=== PATIENT | female | born 1940 | race Caucasian/White ===

== ENCOUNTER 2020-02-08 11:24 | Inpatient (IN) | payer OTHER ==
--- NOTE | 2020-02-08 12:21 | PDOC ---
History of Present Illness - General Chief Complaint: Wound Stated Complaint: WOUND CARE Time Seen by Provider: 02/08/20 12:02 - History of Present Illness Initial Comments: 02/08/20 12:14 79F [place] with [place]H of mild dementia, DM, RA, HTN, old CVA was sent for admission for osteomyelitis and hardware removal. History provided by patient's daughter and PCP Tez, who state that patient has known osteomyelitis in right fifth metatarsal and exposed old hardwear in the left ankle. They state that podiatry recommended admission, and the PCP will coordinate care with podiatry, ortho, and ID. At present, patient complains of pain in right leg that began "10 minutes" ago. PMH/PSH: as above Home Medications Medication Instructions Recorded Acetaminophen [Tylenol 2 tab PO Q8H PRN 02/08/20 .Extra-Strength -] Adalimumab [Humira Pen] 40 mg PO Q14D 02/08/20 Albuterol Sulfate 0.042% [Ventolin 1 appful IH Q6H PRN 02/08/20 0.042% (Half-Strength) -] Aspirin [ASA -] 81 mg PO DAILY 02/08/20 Chlorhexidine Gluconate [Peridex -] 15 mg PO BID 02/08/20 Folic Acid - 1 mg PO DAILY 02/08/20 Gabapentin 300 mg PO BID 02/08/20 Gentamicin 0.1% Ointment 1 appful TP BID 02/08/20 [Garamycin 0.1% Ointment -] Hydrocortisone 1% Cream [Hytone 1% 1 appful TP Q12H 02/08/20 Cream -] Latanoprost 0.005% Eye Drops 1 drop OU HS 02/08/20 [Xalatan 0.005% Eye Drops -] Metoprolol Succinate [Toprol XL -] 25 mg PO DAILY 02/08/20 Polyethylene Glycol 3350 [Miralax 17 gm PO DAILY 02/08/20 119 gm Btl -] Polyvinyl Alcohol/Povidone [Gnp 1 drop OS TID 02/08/20 Artificial Tears Drops] Povidone-Iodine [Betadine -] 1 appful TP DAILY 02/08/20 Sorbitol Solution [Sorbitol] 15 ml PO DAILY 02/08/20 Timolol 0.5% [Timoptic 0.5%] 1 drop OD DAILY 02/08/20 traMADol HCL [Ultram -] 1 tab PO BID 02/08/20 Allergies Allergy/AdvReac Type Severity Reaction Status Date / Time No Known Allergies Allergy Verified 02/08/20 10:54 ROS GENERAL/CONSTITUTIONAL: No fever or chills. No weakness. HEAD, EYES, EARS, NOSE AND THROAT: No change in vision. No ear pain or discharge. No sore throat. CARDIOVASCULAR: No chest pain or shortness of breath RESPIRATORY: No cough, wheezing, or hemoptysis. GASTROINTESTINAL: No nausea, vomiting, diarrhea or constipation. GENITOURINARY: No dysuria, frequency, or change in urination. MUSCULOSKELETAL: Right leg pain. No neck or back pain. SKIN: No rash NEUROLOGIC: No headache, vertigo, loss of consciousness, or change in strength/sensation. ENDOCRINE: No increased thirst. No abnormal weight change HEMATOLOGIC/LYMPHATIC: No anemia, easy bleeding, or history of blood clots. ALLERGIC/IMMUNOLOGIC: No hives or skin allergy. PE GENERAL: Awake, alert, and fully oriented, in no acute distress HEAD: No signs of trauma, normocephalic, atraumatic EYES: PERRLA, EOMI, sclera anicteric, conjunctiva clear ENT: Auricles normal inspection, hearing grossly normal, nares patent, oropharynx clear without exudates. Moist mucosa NECK: Normal ROM, supple, no lymphadenopathy, JVD, or masses LUNGS: No distress, speaks full sentences, clear to auscultation bilaterally HEART: Regular rate and rhythm, normal S1 and S2, no murmurs, rubs or gallops, peripheral pulses normal and equal bilaterally. ABDOMEN: Distended. Soft, nontender, normoactive bowel sounds. No guarding, no rebound. No masses EXTREMITIES : Both feet and ankles wrapped in padding with screw extending out of left ankle. Extremities are contracted and show RA changes. no edema. No clubbing or cyanosis. NEUROLOGICAL: no focal sensorimotor deficits SKIN: Warm, Dry Vital Signs Temp Pulse Resp BP Pulse Ox 98.1 F 71 20 123/64 97 02/08/20 12:04 02/08/20 12:04 02/08/20 12:04 02/08/20 12:04 02/08/20 12:04 79F [place] with PMH of mild dementia, DM, RA, HTN, old CVA was sent for admission for osteomyelitis and hardware removal. -Admission order set: EKG, CXR, CBC, CMP, Covid -Blood cultures -plain films of both ankles and feet to evaluate for free air -flat and upright abdominal x-ray 02/08/20 17:01 EKG: NSR, rate 74, normal axis and intervals, no ischemic changes Labs: WBC 10.2 without shift No anemia Plt 516 Na 134 BUN/Cr 23.3/0.5 Alk phos 122 Alb 2.5 Abdominal x-ray: 2 views of the abdomen reveal a groundglass appearance compatible with ascites, left base infiltrate, prominent mediastinum and a suitable left skin fold artifact. A repeat chest film can be obtained to check whether or not the presumed skin fold artifact is skinfold artifact rather than a pneumothorax. There is central abdominal distention. This has the appearance of a small bowel obstruction. Correlation recommended. Portable CXR: Impression: Prominent mediastinum. Rotation right. Left base infiltrate. Follow- up recommended Right foot and ankle plain film: 2 views of the right foot and ankle reveal loss of bone density, bunion formation by the first MTP joint and some erosive changes which could indicate gout. The other toes are angulated with arthritic changes. There is a pes planus deformity. There is no sign of a foreign body or soft tissue air. There is some minimal swelling. If one is concerned about osteomyelitis, three-phase bone scan or MR may be of help Left foot and ankle plain film 4 views of the ankle and foot have been submitted. There is evidence of previous fracture stabilization involving the medial malleolus and distal fibula. There is loss of bone density, degenerative changes, bunion formation by the first MTP joint and angulated toes with an old nonhealed fracture deformity or postsurgical change involving the fifth metatarsal. If one is concerned about osteomyelitis, a 3-phase bone scan is suggested. Given lung and abdomen findings, will order a CT C/A/P with oral and IV contrast . 02/08/20 20:12 Admitting physician has assumed care Past History - Medical History Allergies/Adverse Reactions: Allergies Allergy/AdvReac Type Severity Reaction Status Date / Time No Known Allergies Allergy Verified 02/08/20 10:54 Home Medications: Ambulatory Orders Acetaminophen [Tylenol .Extra-Strength -] 2 tab PO Q8H PRN 02/08/20 Adalimumab [Humira Pen] 40 mg PO Q14D 02/08/20 Albuterol Sulfate 0.042% [Ventolin 0.042% (Half-Strength) -] 1 appful IH Q6H PRN 02/08/20 Aspirin [ASA -] 81 mg PO DAILY 02/08/20 Chlorhexidine Gluconate [Peridex -] 15 mg PO BID 02/08/20 Folic Acid - 1 mg PO DAILY 02/08/20 Gabapentin 300 mg PO BID 02/08/20 Gentamicin 0.1% Ointment [Garamycin 0.1% Ointment -] 1 appful TP BID 02/08/20 Hydrocortisone 1% Cream [Hytone 1% Cream -] 1 appful TP Q12H 02/08/20 Latanoprost 0.005% Eye Drops [Xalatan 0.005% Eye Drops -] 1 drop OU HS 02/08/20 Metoprolol Succinate [Toprol XL -] 25 mg PO DAILY 02/08/20 Polyethylene Glycol 3350 [Miralax 119 gm Btl -] 17 gm PO DAILY 02/08/20 Polyvinyl Alcohol/Povidone [Gnp Artificial Tears Drops] 1 drop OS TID 02/08/20 Povidone-Iodine [Betadine -] 1 appful TP DAILY 02/08/20 Sorbitol Solution [Sorbitol] 15 ml PO DAILY 02/08/20 Timolol 0.5% [Timoptic 0.5%] 1 drop OD DAILY 02/08/20 traMADol HCL [Ultram -] 1 tab PO BID 02/08/20 CVA: Yes (CVA) COPD: No Dementia: Yes Diabetes: Yes (30 yrs) HTN: Yes Thyroid Disease: Yes (RA,OA,dysphagia) - Surgical History Orthopedic Surgery: Yes - Psycho-Social/Smoking History Smoking History: Never smoked Have you smoked in the past 12 months: No *Physical Exam - Vital Signs Last Vital Signs Temp Pulse Resp BP Pulse Ox 98.1 F 71 20 123/64 97 02/08/20 12:04 02/08/20 12:04 02/08/20 12:04 02/08/20 12:04 02/08/20 12:04 ED Treatment Course - LABORATORY CBC & Chemistry Diagram: 02/08/20 13:05 02/08/20 13:03 Discharge - Discharge Information Problems reviewed: Yes Clinical Impression/Diagnosis: Osteomyelitis Qualifiers: Osteomyelitis type: chronic multifocal Osteomyelitis location: foot Laterality: unspecified laterality Qualified Code(s): M86.379 - Chronic multifocal osteomyelitis, unspecified ankle and foot Condition: Stable - Admission Yes - Follow up/Referral - Patient Discharge Instructions - Post Discharge Activity
[2020-02-08 13:45] LABS: BASO % 0.6 % (0-2.0); HEMATOCRIT 34.1 % (32.4-45.2); HEMOGLOBIN 11.3 GM/dL (10.7-15.3); MCH 28.9 pg (25.7-33.7); MEAN CELL VOLUME 87.5 fl (80-96); MEAN PLT VOLUME 7.4 fl (7.5-11.1); MONO % 6.4 % (3.8-10.2); PLATELET COUNT 516 K/MM3 (134-434); RDW 14.7 % (11.6-15.6); WHITE BLOOD COUNT 10.2 K/mm3 (4.0-10.0)
[2020-02-08] MEDS ORDERED: CEFEPIME HCL/D5W 2 GM/50 ML BAG IVPB ONE (14:20)
[2020-02-08] MEDS ORDERED: VANCOMYCIN 1,000 MG in DEXTROSE 5%-WATER - 250 ML IVPB ONE (14:20)
--- NOTE | 2020-02-08 14:20 | PDOC ---
Documentation entered by Jeff Menendez SCRIBE, acting as scribe for Jason Delaney MD. Jason Delaney MD: This documentation has been prepared by the Shon bertrand Xhesika, SCRIBE, under my direction and personally reviewed by me in its entirety. I confirm that the documentation accurately reflects all work, treatment, procedures, and medical decision making performed by me. Attending Attestation - Resident Resident Name: PorterRoe - ED Attending Attestation I have performed the following: I have examined & evaluated the patient, The case was reviewed & discussed with the resident, I agree w/resident's findings & plan, Exceptions are as noted - HPI HPI: 02/08/20 12:27 The patient is a 79 y/o F with a pmh of mild dementia, DM, RA, HTN, old CVA, and osteomyelitis who presents to the ED sent by Dr. Gil for admission for osteomyelitis and hardware removal. Allergies: NKDA PCP: brittanie bazan. - Physicial Exam PE: 02/08/20 14:22 Vitals: Triage Vital signs reviewed General Appearance: No acute distress, well nourished well developed, Head: Atraumatic, Cardiac: Regular rate and rhythym, no murmurs, no rubs, no gallops, Lungs: Clear to auscultation bilateral, good air movement bilaterally, Abdomen: Soft, non distended, normal bowel sounds, non tender to palpation Extremities: Seen by podiatry screw extruding from foot wrapped Skin: Warm and dry, no rashes or lesions, no rash, no petechiae Neuro: Strength intact to all extremities, sensation intact to all extremities Psych: Normal mood, normal affect - Medical Decision Making 02/10/20 16:10 The patient is a 79 y/o F with a pmh of mild dementia, DM, RA, HTN, old CVA, and osteomyelitis who presents to the ED sent by Dr. Gil for admission for osteomyelitis and hardware removal. IV abx ordered Ortho consulted CT Abd pelvis ordered 2/2 dilated loops on XRAY. Will admit to medicine for further management. Discharge - Discharge Information Problems reviewed: Yes Clinical Impression/Diagnosis: Osteomyelitis Qualifiers: Osteomyelitis type: chronic multifocal Osteomyelitis location: foot Laterality: unspecified laterality Qualified Code(s): M86.379 - Chronic multifocal osteomyelitis, unspecified ankle and foot Condition: Stable - Follow up/Referral - Patient Discharge Instructions - Post Discharge Activity
[2020-02-08 14:33] LABS: ALBUMIN 2.5 g/dl (3.4-5.0); BILIRUBIN,TOTAL 0.3 mg/dL (0.2-1); BLOOD UREA NITROGEN 23.3 mg/dL (7-18); CALCIUM 8.7 mg/dL (8.5-10.1); CREATININE 0.5 mg/dL (0.55-1.3); POTASSIUM 5.1 mmol/L (3.5-5.1); TOT PROT 7.5 g/dl (6.4-8.2)
[2020-02-08] MEDS ORDERED: ACETAMINOPHEN 500 MG TABLET (FP) PO PRN (14:47)
[2020-02-08] MEDS ORDERED: VANCOMYCIN 1 GRAM (PRE-DOCKED) 1,000 MG/250 ML BAG IVPB ONE (14:54)
[2020-02-08] MEDS ORDERED: CEFEPIME 2 GM/100 ML BAG IVPB ONE (14:55)
--- NOTE | 2020-02-08 16:29 | EKG ---
Test Reason : Blood Pressure : / mmHG Vent. Rate : 074 BPM Atrial Rate : 074 BPM P-R Int : 134 ms QRS Dur : 072 ms QT Int : 370 ms P-R-T Axes : -01 -04 041 degrees QTc Int : 410 ms NORMAL SINUS RHYTHM NORMAL ECG NO PREVIOUS ECGS AVAILABLE Confirmed by MD RINA, MEG ([id number]) on 02/08/2020 4:28:41 PM Referred By: Confirmed By:MEG FLYNN MD
--- NOTE | 2020-02-08 17:40 | HP ---
Admitting History and Physical - Primary Care Physician PCP: Shaista Reagan - Admission Chief Complaint: 79 yo lady sent from wound care for treatment and evaluation of likely bilateral foot osteomyelitis History of Present Illness: 79 yo female from [facility] with non-healing bilateral metatarsal wounds, which did not respond to local treatment. Right ankle and foot CT showed 5th metatarsal osteomyelitis. She was sent for wound care for bone biopsy and from there to er to medically evaluate and prepare for likely metatarsal excision and biopsy. She also will need orthopedic evaluation for removal of left ankle hardware which is visible on exam. History Source: Medical Record Limitations to Obtaining History: Dementia, Poor Historian - Past Medical History [employer]ING [employer]ER: Yes: Dementia Rheumatology: Yes: Rheumatoid Arthritis Additional Past Medical History: Glaucoma - Past Surgical History Additional Past Surgical History: left ankle surgery with hardware after accident - Smoking History Smoking history: Never smoked Have you smoked in the past 12 months: No - Alcohol/Substance Use Hx Alcohol Use: No History of Substance Use: reports: None - Social History Usual Living Arrangement: Yes: Half-Way History of Recent Travel: No Home Medications - Allergies Allergies/Adverse Reactions: Allergies Allergy/AdvReac Type Severity Reaction Status Date / Time No Known Allergies Allergy Verified 02/08/20 10:54 - Home Medications Home Medications: Ambulatory Orders Acetaminophen [Tylenol .Extra-Strength -] 2 tab PO Q8H PRN 02/08/20 Adalimumab [Humira Pen] 40 mg PO Q14D 02/08/20 Albuterol Sulfate 0.042% [Ventolin 0.042% (Half-Strength) -] 1 appful IH Q6H PRN 02/08/20 Aspirin [ASA -] 81 mg PO DAILY 02/08/20 Chlorhexidine Gluconate [Peridex -] 15 mg PO BID 02/08/20 Folic Acid - 1 mg PO DAILY 02/08/20 Gabapentin 300 mg PO BID 02/08/20 Gentamicin 0.1% Ointment [Garamycin 0.1% Ointment -] 1 appful TP BID 02/08/20 Hydrocortisone 1% Cream [Hytone 1% Cream -] 1 appful TP Q12H 02/08/20 Latanoprost 0.005% Eye Drops [Xalatan 0.005% Eye Drops -] 1 drop OU HS 02/08/20 Metoprolol Succinate [Toprol XL -] 25 mg PO DAILY 02/08/20 Polyethylene Glycol 3350 [Miralax 119 gm Btl -] 17 gm PO DAILY 02/08/20 Polyvinyl Alcohol/Povidone [Gnp Artificial Tears Drops] 1 drop OS TID 02/08/20 Povidone-Iodine [Betadine -] 1 appful TP DAILY 02/08/20 Sorbitol Solution [Sorbitol] 15 ml PO DAILY 02/08/20 Timolol 0.5% [Timoptic 0.5%] 1 drop OD DAILY 02/08/20 traMADol HCL [Ultram -] 1 tab PO BID 02/08/20 Family Medical History Family History: Unable to Obtain Review of Systems - Review of Systems Constitutional: reports: No Symptoms Eyes: reports: Other (no vision in left eye) HENT: reports: No Symptoms Neck: reports: No Symptoms Cardiovascular: reports: No Symptoms Respiratory: reports: No Symptoms Gastrointestinal: reports: No Symptoms. denies: Abdominal Pain Genitourinary: reports: Incontinence Musculoskeletal: reports: Decreased ROM, Muscle Pain, Muscle Weakness, Other (chronic arthritic pains) Integumentary: reports: Rash (on back), Wound (bilateral plantar wounds, left lateral ankle with visible hardware) Neurological: reports: Confusion (mild) Psychiatric: reports: No Symptoms Physical Examination Vital Signs: Vital Signs Temperature 98.1 F 02/08/20 12:04 Pulse Rate 71 02/08/20 12:04 Respiratory Rate 02/08/20 12:04 Blood Pressure 123/64 02/08/20 12:04 O2 Sat by Pulse Oximetry (%) 97 02/08/20 12:04 Constitutional: Yes: Calm Eyes: Yes: Other (left eyeopacity with blindness) HENT: Yes: WNL Neck: Yes: WNL Cardiovascular: Yes: WNL, Regular Rate and Rhythm Respiratory: Yes: Regular, Other (scattered basal rhonchi) Gastrointestinal: Yes: Normal Bowel Sounds, Distention (abdominal distensino with mild diffuse tenderness, no guarding, no rebounb) Musculoskeletal: Yes: Other (severely contracted extremities with arthritic changes bilateral knee and hip flexion) Edema: No Peripheral Pulses WNL: Yes Integumentary: Yes: Other (bilateral plantar wounds, left lateral ankle with visible hardware) Neurological: Yes: Alert, Confusion Psychiatric: Yes: WNL Labs: CBC, BMP 02/08/20 13:05 02/08/20 13:03 Imaging - Results Chest X-ray: Report Reviewed (pissible infiltrate on cxr) X-ray: Report Reviewed (bilateral arthritic changes with hardware in left foot ileus pattern on FUA) EKG: Report Reviewed (normal) Problem List - Problems (1) Rheumatoid arthritis Code(s): M06.9 - RHEUMATOID ARTHRITIS, UNSPECIFIED Qualifiers: Rheumatoid arthritis location: multiple sites Rheumatoid factor presence: unspecified presence Qualified Code(s): M06.9 - Rheumatoid arthritis, unspecified (2) Dementia Code(s): F03.90 - UNSPECIFIED DEMENTIA WITHOUT BEHAVIORAL DISTURBANCE Qualifiers: Dementia type: Alzheimer's disease Alzheimer's disease onset: unspecified onset Dementia behavioral disturbance: without behavioral disturbance Qualified Code(s): G30.9 - Alzheimer's disease, unspecified; F02.80 - Dementia in other diseases classified elsewhere without behavioral disturbance (3) Small bowel obstruction Code(s): K56.609 - UNSP INTESTNL OBST, UNSP TO PARTIAL VERSUS COMPLETE OBST (4) Pneumonia Code(s): J18.9 - PNEUMONIA, UNSPECIFIED ORGANISM Qualifiers: Pneumonia type: due to unspecified organism Laterality: left Lung location: lower lobe of lung Qualified Code(s): J18.9 - Pneumonia, unspecified organism (5) Osteomyelitis Code(s): M86.9 - OSTEOMYELITIS, UNSPECIFIED Qualifiers: Osteomyelitis type: chronic multifocal Osteomyelitis location: foot Laterality: unspecified laterality Qualified Code(s): M86.379 - Chronic multifocal osteomyelitis, unspecified ankle and foot Assessment/Plan CT chest r/o infiltrate-poor CXR quality FUA with possible SBO-CT abdomen and pelvis podiatry and orthopedic follow up for metatarsal excision and culture and for hopefully removal of hardware depending on above results will likely need abx in er received cefepime and vanco-will defer further use until biopsy results
[2020-02-08 21:26] VITALS: BMI 25.9
[2020-02-08] MEDS: GABAPENTIN 300 MG CAPSULE PO SCH (21:32)
[2020-02-08] MEDS: traMADol HCL 50 MG TABLET PO SCH (21:33)
[2020-02-08] MEDS: LATANOPROST 0.005% OPHTH SOLN 2.5ML BOTTLE OU SCH (21:35)
[2020-02-08] MEDS: GENTAMICIN SO4 0.1% TOPICAL OINTMENT 15 GM/TUBE TUBE TP SCH (21:35)
[2020-02-08] MEDS: ARTIFICIAL TEARS (POLYVINYL ALCOHOL) OPTH DROPS OS SCH (21:35)
[2020-02-09] MEDS: ARTIFICIAL TEARS (POLYVINYL ALCOHOL) OPTH DROPS OS SCH ×3 (06:10→22:22)
--- NOTE | 2020-02-09 08:41 | PN ---
Progress Note (short form) - Note Progress Note: no overnight events Vital Signs Period Temp Pulse Resp BP Sys/Page Pulse Ox Last 24 Hr 97.3 F-98.1 F 68-104 18-20 96-140/64-82 97-98 S1S2 rrr lungs cta good air entry abd distended, mildly tender on deep palpation hips, knees, enkles flexed, cntracted bilateral plantar wounds are dressed no edema awake, alert, oriented to person CT chest Left basal calcifications vs. barium aspirate CT abdomen severe constipation, fecal impaction 79 yo lady with severe rheumatoid arthritis, dementia admitted for treatment of bilateral foot wounds, right confirmed osteomyelitis on CT as outpt visible ankle hardware fecal impaction podiatry and orthopedic consult requested for metatarsal excision and possible hardware removal id eval requested for abx treatment-would hold off until biopsy is done bowel regimen Problem List - Problems (1) Rheumatoid arthritis Code(s): M06.9 - RHEUMATOID ARTHRITIS, UNSPECIFIED Qualifiers: Rheumatoid arthritis location: multiple sites Rheumatoid factor presence: unspecified presence Qualified Code(s): M06.9 - Rheumatoid arthritis, unspecified (2) Dementia Code(s): F03.90 - UNSPECIFIED DEMENTIA WITHOUT BEHAVIORAL DISTURBANCE Qualifiers: Dementia type: Alzheimer's disease Alzheimer's disease onset: unspecified onset Dementia behavioral disturbance: without behavioral disturbance Qualified Code(s): G30.9 - Alzheimer's disease, unspecified; F02.80 - Dementia in other diseases classified elsewhere without behavioral disturbance (3) Small bowel obstruction Code(s): K56.609 - UNSP INTESTNL OBST, UNSP TO PARTIAL VERSUS COMPLETE OBST (4) Pneumonia Code(s): J18.9 - PNEUMONIA, UNSPECIFIED ORGANISM Qualifiers: Pneumonia type: due to unspecified organism Laterality: left Lung location: lower lobe of lung Qualified Code(s): J18.9 - Pneumonia, unspecified organism (5) Osteomyelitis Code(s): M86.9 - OSTEOMYELITIS, UNSPECIFIED Qualifiers: Osteomyelitis type: chronic multifocal Osteomyelitis location: foot Laterality: unspecified laterality Qualified Code(s): M86.379 - Chronic multifocal osteomyelitis, unspecified ankle and foot
--- NOTE | 2020-02-09 10:18 | CONSULT ---
Consult - text type - Consultation Consultation Note: FULL CONSULT DICTATED IMP: OPEN WOUND WITH PROMINENT SCREW LEFT LATERAL ANKLE PLAN: SCREW REMOVED ON FLOOR, WOUND CARE, WILL FOLLOW
--- NOTE | 2020-02-09 11:05 | CONS ---
ORTHOPEDIC CONSULTATION DATE OF CONSULTATION: 02/09/2020 HISTORY: Patient is a 79-year-old severe rheumatoid arthritic patient found down and lying with marked contractures, but is being treated by Podiatry for chronic wounds on her feet. Patient is status post open reduction internal fixation of a left ankle fracture many years ago. Patient was found to have a slight open wound on her left ankle with a prominent screw and, therefore, Orthopedic Surgery was called. PHYSICAL EXAMINATION: She has marked contractures of both hips and knees and ankles bend down. On her left ankle she does have a small 0.5 cm opening where 1 solitary screw is prominent and exposed in the wound. The rest of the incision proximally and distally around the ankle is intact with no erythema or ecchymosis and she has an incisional scar medially which is also intact. She has adequate range of motion of her ankle. She had a calf that is soft and nontender. She does have her issues with her metatarsals which are being treated by the grade recorder. Review their notes for further guidance regarding those treatments. X-rays show that she is status post a left ankle bimalleolar ankle fracture with straight plate and screws laterally and 2 medial screws. The fracture is long healed. There is no evidence of any sequestra or erosions of the bone laterally. She does have a history of osteomyelitis in the right ankle, but there is no evidence on x-ray of any osteomyelitis in the left ankle. IMPRESSION: Prominent hardware over the left lateral ankle status post bimalleolar ankle fracture in a bedbound contractured patient. As the screw was very prominent and accessible, on the bedside I removed the screw using a standard small fragment Synthe[employer] screwdriver with no pain to the patient whatsoever. Had slight bleeding from the site post removal of the screw which was dressed with Xeroform and a sterile dressing. At this point I would hold off on formally taking her to the operating room to remove the entire plate and screws as it is unnecessary. Patient has no evidence of infection at this time and with local wound care this should be able to heal in any case. AMERICO PIZARRO M.D. [id number]
--- NOTE | 2020-02-09 11:22 | CONSULT ---
Consult - text type - Consultation Consultation Note: Podiatry Consultation: 79 year old diabetic female, history of rheumatoid arthritis and dementia, presented to wound healing center with bilateral fifth MTPJ diabetic pressure ulcers and left ankle pressure ulcer with exposed hardware. She is persistently contracted, and despite offloading measures implemented, has had ulcers for the past 6+ months. After discussion with patient and her daughter in [facility], I recommended admission for intravenous abx, orthopedics consultation and possible 5th MT head resection with bone biopsy. She denies F/V/N/C/SOB/CP. Currently afebrile. CT scan ordered outpatient which demonstrates osteomyelitis left fifth metatarsal head. PMHx: DM, HTN, CVA, dementia, rheumatoid arthritis, severely contracted Meds: noted ALL: NKMA LAVELLE: Pedal pulses palpable, TG wnl, CFT brisk to all digits bilaterally. There are no ischemic changes to the foot bilaterally. The foot is warm and well perfused bilaterally. There are bilateral plantar 5th MTPJ diabetic pressure ulcers with mixed fibrogranular bases, hyperkeratotic borders. The ulcers are down to capsule. There is no purulent drainage, no fluctuance, no streaking ascending cellulitis, no signs of active infection. No tenderness to palpation. Left lateral ankle chronic ulcer with exposed screw head. Blood Cx: pending Imp: 79 year old diabetic, contracted female with bilateral 5th MTPJ diabetic pressure ulcers, osteomyelitis Orthopedics consultation appreciated; screw removed at bedside without complications. I had a thorough discussion with the patient's daughter regarding treatment options. I did discuss that due to patient's severe contractures, IV abx alone may not resolve the ulcers. I have recommended fifth metatarsal head resection with bone biopsy bilaterally to surgically offload the feet. She would like to discuss with her sister prior to making decisions for OR. If the patient's daughters are agreeable, will plan for OR tomorrow. Will follow, thank you for the courtesy of this consultation.
[2020-02-09] MEDS: FOLIC ACID 1 MG TABLET (FP) PO SCH (12:21)
[2020-02-09] MEDS: traMADol HCL 50 MG TABLET PO SCH ×2 (12:21→22:21)
[2020-02-09] MEDS: metoPROLOL SUCCINATE 25 MG TAB.SR.24H (FP) PO SCH (12:22)
[2020-02-09] MEDS: GABAPENTIN 300 MG CAPSULE PO SCH ×2 (12:22→22:21)
[2020-02-09] MEDS: ENOXAPARIN NA (PORCINE) 40 MG/0.4 ML DISP.SYRIN SQ SCH (12:22)
[2020-02-09] MEDS: GENTAMICIN SO4 0.1% TOPICAL OINTMENT 15 GM/TUBE TUBE TP SCH ×2 (12:23→22:22)
[2020-02-09] MEDS: TIMOLOL 0.5% OPHTHALMIC SOL 5 ML BOTTLE OD SCH (12:23)
[2020-02-09] MEDS: POLYETHYLENE GLYCOL 3350 119 GM BTL PO SCH (12:23)
[2020-02-09] MEDS: DOCUSATE SODIUM 100 MG CAPSULE (FP) PO SCH ×2 (16:04→22:21)
[2020-02-09] MEDS: MINERAL OIL ENEMA 133 ML ENEMA RC SCH (16:04)
--- NOTE | 2020-02-09 16:48 | PN ---
Progress Note (short form) - Note Progress Note: ID consult dictated osteomyelitis- no signs celulitis or purulence or systemic infection hold antibiotics until bone biopsy is done RA- nonambulatory with lower extrmity contractures- not sure how well she will heal given the etiology of the ulcers (pressure ulcers) mild dementia d/w daughter Problem List - Problems (1) Osteomyelitis Code(s): M86.9 - OSTEOMYELITIS, UNSPECIFIED Qualifiers: Osteomyelitis type: chronic multifocal Osteomyelitis location: foot Laterality: unspecified laterality Qualified Code(s): M86.379 - Chronic multifocal osteomyelitis, unspecified ankle and foot (2) Rheumatoid arthritis Code(s): M06.9 - RHEUMATOID ARTHRITIS, UNSPECIFIED Qualifiers: Rheumatoid arthritis location: multiple sites Rheumatoid factor presence: unspecified presence Qualified Code(s): M06.9 - Rheumatoid arthritis, unspecified (3) Dementia Code(s): F03.90 - UNSPECIFIED DEMENTIA WITHOUT BEHAVIORAL DISTURBANCE Qualifiers: Dementia type: Alzheimer's disease Alzheimer's disease onset: unspecified onset Dementia behavioral disturbance: without behavioral disturbance Qualified Code(s): G30.9 - Alzheimer's disease, unspecified; F02.80 - Dementia in other diseases classified elsewhere without behavioral disturbance
--- NOTE | 2020-02-09 17:50 | PN ---
Progress Note (short form) - Note Progress Note: Podiatry Brief Note: Discussed case at length with patient's daughters earlier today, including treatment options. They are amenable to surgical route, which is debridement with 5th MT head resection and bone biopsy. For OR tomorrow at 11 am. NPO midnight. Maxim Gil DPM
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
[2020-02-09] MEDS ORDERED: PT OWN MED DRAWER 7, Y5N ONE (21:56)
[2020-02-09] MEDS: LATANOPROST 0.005% OPHTH SOLN 2.5ML BOTTLE OU SCH (22:23)
[2020-02-10] MEDS: ARTIFICIAL TEARS (POLYVINYL ALCOHOL) OPTH DROPS OS SCH ×3 (06:01→21:39)
[2020-02-10] MEDS: DOCUSATE SODIUM 100 MG CAPSULE (FP) PO SCH ×3 (06:01→21:36)
--- NOTE | 2020-02-10 08:46 | PN ---
Progress Note (short form) - Note Progress Note: no overnight events CBC, BMP 02/08/20 13:05 02/08/20 13:03 Vital Signs Period Temp Pulse Resp BP Sys/Page Pulse Ox Last 24 Hr 97.9 F-98.9 F 78-95 16-18 118-156/63-81 95-98 S1S2 rrr lungs cta good air entry abd distended, mildly tender on deep palpation hips, knees, ankles flexed, contracted bilateral plantar wounds are dressed no edema awake, alert, oriented to person CT chest Left basal calcifications vs. barium aspirate CT abdomen severe constipation, fecal impaction 79 yo lady with severe rheumatoid arthritis, dementia admitted for treatment of bilateral foot wounds, right confirmed osteomyelitis on CT as outpt visible ankle hardware removed yesterday at bedside fecal impaction no medical contraindication to bilateral metatarsal excision today iv antibiotic depending on result Problem List - Problems (1) Rheumatoid arthritis Code(s): M06.9 - RHEUMATOID ARTHRITIS, UNSPECIFIED Qualifiers: Rheumatoid arthritis location: multiple sites Rheumatoid factor presence: unspecified presence Qualified Code(s): M06.9 - Rheumatoid arthritis, unspecified (2) Dementia Code(s): F03.90 - UNSPECIFIED DEMENTIA WITHOUT BEHAVIORAL DISTURBANCE Qualifiers: Dementia type: Alzheimer's disease Alzheimer's disease onset: unspecified onset Dementia behavioral disturbance: without behavioral disturbance Qualified Code(s): G30.9 - Alzheimer's disease, unspecified; F02.80 - Dementia in other diseases classified elsewhere without behavioral disturbance (3) Small bowel obstruction Code(s): K56.609 - UNSP INTESTNL OBST, UNSP TO PARTIAL VERSUS COMPLETE OBST (4) Pneumonia Code(s): J18.9 - PNEUMONIA, UNSPECIFIED ORGANISM Qualifiers: Pneumonia type: due to unspecified organism Laterality: left Lung location: lower lobe of lung Qualified Code(s): J18.9 - Pneumonia, unspecified organism (5) Osteomyelitis Code(s): M86.9 - OSTEOMYELITIS, UNSPECIFIED Qualifiers: Osteomyelitis type: chronic multifocal Osteomyelitis location: foot Laterality: unspecified laterality Qualified Code(s): M86.379 - Chronic multifocal osteomyelitis, unspecified ankle and foot
[2020-02-10 09:01] LABS: BASO % 0.6 % (0-2.0); EOS % 4.2 % (0-4.5); HEMATOCRIT 35.9 % (32.4-45.2); HEMOGLOBIN 11.7 GM/dL (10.7-15.3); LYMPH % 22.8 % (8-40); MCH 28.3 pg (25.7-33.7); MCHC 32.6 g/dl (32.0-36.0); MEAN CELL VOLUME 86.7 fl (80-96); MEAN PLT VOLUME 7.3 fl (7.5-11.1); MONO % 8.2 % (3.8-10.2); NEUT % 64.2 % (42.8-82.8); PLATELET COUNT 527 K/MM3 (134-434); RBC 4.14 M/mm3 (3.60-5.2); RDW 14.8 % (11.6-15.6); WHITE BLOOD COUNT 9.1 K/mm3 (4.0-10.0)
[2020-02-10 09:03] LABS: INR 1.05 (0.83-1.09); PROTHROMBIN TIME (PATIENT) 12.4 SEC (9.7-13.0)
[2020-02-10 09:06] LABS: ACTIVATED PTT 28.6 SECONDS (25.2-36.5)
[2020-02-10 09:28] LABS: ALBUMIN 2.6 g/dl (3.4-5.0); BILIRUBIN,TOTAL 0.4 mg/dL (0.2-1); CREATININE 0.5 mg/dL (0.55-1.3); POTASSIUM 4.6 mmol/L (3.5-5.1); TOT PROT 7.5 g/dl (6.4-8.2)
[2020-02-10] MEDS ORDERED: LIDOCAINE HCL 1%, 10 MG/ML (20ML VIAL) ONE (09:39)
--- NOTE | 2020-02-10 10:00 | PN ---
Progress Note (short form) - Note Progress Note: Ortho Pt seen and examined s/p removal of screw in left ankle. Selected Entries 02/10/20 06:00 Temperature 98.1 F Pulse Rate 86 Respiratory 16 Rate Blood Pressure 156/77 Laboratory Tests 02/10/20 08:30 WBC 9.1 Hgb 11.7 Hct 35.9 MCV 86.7 Plt Count 527 H + open wound, no drainage, no erythema a/p local wound care Orthopedically stable re-consult prn d/w Dr. Durant
[2020-02-10] MEDS: metoPROLOL SUCCINATE 25 MG TAB.SR.24H (FP) PO SCH (10:40)
[2020-02-10] MEDS: GABAPENTIN 300 MG CAPSULE PO SCH ×2 (10:44→21:38)
[2020-02-10] MEDS: ENOXAPARIN NA (PORCINE) 40 MG/0.4 ML DISP.SYRIN SQ SCH (10:44)
[2020-02-10] MEDS: POLYETHYLENE GLYCOL 3350 119 GM BTL PO SCH (10:44)
[2020-02-10] MEDS: FOLIC ACID 1 MG TABLET (FP) PO SCH (10:45)
[2020-02-10] MEDS: traMADol HCL 50 MG TABLET PO SCH ×2 (10:46→21:36)
[2020-02-10] MEDS ORDERED: LIDOCAINE HCL 2% (20ML MULTI-DOSE VIAL) ONE (10:49)
--- NOTE | 2020-02-10 11:04 | PN ---
Progress Note (short form) - Note Progress Note: 79 y/o female seen at bedside in pre op spoke with daughter on phone consent signed for bilateral 5th MT head resections NPO confirmed to the OR.
[2020-02-10] MEDS ORDERED: PROPOFOL 20 ML ONE ×2 (11:19)
[2020-02-10] MEDS ORDERED: SUCCINYLCHOLINE CHLORIDE 200 MG/10 ML SYRINGE ONE (11:19)
[2020-02-10] MEDS ORDERED: DEXAMETHASONE SOD PHOSPHATE 4 MG/1 ML VIAL ONE (11:26)
[2020-02-10] MEDS ORDERED: LIDOCAINE HCL 2% (50ML VIAL) NR ONE (11:29)
[2020-02-10] MEDS ORDERED: BACITRACIN 15 GM TUBE TOPICAL OINTMENT ONE (12:28)
--- NOTE | 2020-02-10 12:42 | OP ---
Operative Note - Note: Operative Date: 02/10/20 Pre-Operative Diagnosis: B/l 5th MT head osteomyelitis Operation: bl 5th mt head resection and bone biopsy Findings: see dictation Post-Operative Diagnosis: Same as Pre-op Surgeon: Tiago Hendrix Community Development Director: Marek Gil Anesthesia: Local, MAC Specimens Removed: bone - L and R 5th MT head micro and path Estimated Blood Loss (mls): 15 Operative Report Dictated: No
--- NOTE | 2020-02-10 12:48 | OPR ---
Pre op : B/l 5th MT head osteo Post op dx: Same Procedure performed: b/l 5th MT head resection and bone biopsy Surgeon: Marek Villarreal EBL: 15 Anesthesia: MAC/ Local 79 yo female was taken tothe operating room for the above mention diagnosis. After complete explanation of the procedure to her family, the family signed the consent form. NPO status was verified. No gaurentees were given. The patient was then brought to the OR. Patient brought to the OR and placed in a supine position on the OR table. No tourniquet was utilized for this procedure. The Patient was prepped and draped in the normal sterile manner. 20 cc of 2% lidocain plain was given and the procedure began. Attention was first directed to the left foot where a linear 2 cm long incision was made overlying the 5th MPJ. The incision was then carried deep to the 5th MT head making sure to retract and bovie all bleeders as necessary. The 5th MP head was revealed and a gross deformity was noted which was likely from chronic osteo. The head was resected, passed from the operative field and sectioned for path and micro. A wound culture was obtained. the wound was flushed and closed with 3-0 vicryl and 4-0 nylon w/o complication Attention was then directed to the right foot where the same procedure was done. A 2cm linear incision was made overlying the 5th MPJ and deeped to expose the 5 th MT head. Bleeders were ligated. The bone was then sectioned proximally with sagittal saw and passed from the operative field and then sectioned fro micro and path. Wound culture obtained. Wound flushed and closed with 3-0 vicryl and 4-0 nylon w/o complication. Wounds were dressed with adaptic bacitracin 4x4 ABD kerlix and DISHA. Patient tolerated anesthesia and procedure well and was transferred to the recovery room with VSS and NVSI to both feet. Patient will be followed on the floors.
--- NOTE | 2020-02-10 16:58 | PN ---
Progress Note (short form) - Note Progress Note: s/p bilateral fifth MT head resections and bone biopsy today Vital Signs Period Temp Pulse Resp BP Sys/Page Pulse Ox Last 24 Hr 97.8 F-98.5 F 67-90 12-18 118-163/53-86 95-100 cor-rrr lungs clear ext contracted CBC, BMP 02/10/20 08:30 02/10/20 08:30 Microbiology 02/08/20 13:05 Blood - Peripheral Venous Blood Culture - Preliminary NO GROWTH OBTAINED AFTER 48 HOURS, INCUBATION TO CONTINUE FOR 3 DAYS. 02/08/20 13:05 Blood - Peripheral Venous Blood Culture - Preliminary NO GROWTH OBTAINED AFTER 48 HOURS, INCUBATION TO CONTINUE FOR 3 DAYS. a/p osteomyelitis-will start vanco and cefepime, await cultures and bone biopsy and pathology RA- nonambulatory with lower extrmity contractures- not sure how well she will heal given the etiology of the ulcers (pressure ulcers) d/w daughter at bedside
[2020-02-10] MEDS: MINERAL OIL ENEMA 133 ML ENEMA RC SCH (17:01)
[2020-02-10] MEDS: TIMOLOL 0.5% OPHTHALMIC SOL 5 ML BOTTLE OD SCH (17:03)
[2020-02-10] MEDS: GENTAMICIN SO4 0.1% TOPICAL OINTMENT 15 GM/TUBE TUBE TP SCH ×2 (17:03→21:43)
[2020-02-10] MEDS: ACETAMINOPHEN 500 MG TABLET (FP) PO PRN (17:10)
[2020-02-10] MEDS ORDERED: CEFEPIME HCL 1 GM VIAL (RESTRICTED TO ID) ONE (18:17)
[2020-02-10] MEDS ORDERED: DEXTROSE 5%-WATER 100 ML IVPB ONE (18:17)
[2020-02-10] MEDS: CEFEPIME 1 GM in DEXTROSE 5%-WATER 100 ML IVPB SCH (18:49)
[2020-02-10] MEDS: VANCOMYCIN 1 GRAM (PRE-DOCKED) 1,000 MG/250 ML BAG IVPB SCH (19:28)
[2020-02-10] MEDS: LATANOPROST 0.005% OPHTH SOLN 2.5ML BOTTLE OU SCH (21:40)
[2020-02-10] MEDS: CLOTRIMAZOLE/BETAMET DIPROP 15 GM TUBE TP SCH (21:41)
[2020-02-11] MEDS ORDERED: DEXTROSE 5%-WATER 100 ML IVPB ONE ×3 (01:00→17:41)
[2020-02-11] MEDS ORDERED: CEFEPIME HCL 1 GM VIAL (RESTRICTED TO ID) ONE ×3 (01:00→17:41)
[2020-02-11] MEDS: CEFEPIME 1 GM in DEXTROSE 5%-WATER 100 ML IVPB SCH ×3 (02:12→17:48)
[2020-02-11] MEDS: ARTIFICIAL TEARS (POLYVINYL ALCOHOL) OPTH DROPS OS SCH ×3 (06:18→21:29)
[2020-02-11] MEDS: DOCUSATE SODIUM 100 MG CAPSULE (FP) PO SCH ×3 (06:18→21:27)
--- NOTE | 2020-02-11 08:25 | PN ---
Progress Note (short form) - Note Progress Note: Vital Signs Period Temp Pulse Resp BP Sys/Page Pulse Ox Last 24 Hr 97.6 F-98.5 F 67-83 12-20 104-163/53-86 93-100 S1S2 rrr lungs cta good air entry abd distended,non tender on deep palpation hips, knees, ankles flexed, contracted bilateral plantar wounds are dressed no edema awake, alert, oriented to person CT chest Left basal calcifications vs. barium aspirate CT abdomen severe constipation, fecal impaction 79 yo lady with severe rheumatoid arthritis, dementia admitted for treatment of bilateral foot wounds, right confirmed osteomyelitis on CT as outpt fecal impaction s/p bilateral 5th metatarsal excision on 02.10.20 tolerated procedure well on iv abx awaiting path and culture to decide length and type of abx Problem List - Problems (1) Rheumatoid arthritis Code(s): M06.9 - RHEUMATOID ARTHRITIS, UNSPECIFIED Qualifiers: Rheumatoid arthritis location: multiple sites Rheumatoid factor presence: unspecified presence Qualified Code(s): M06.9 - Rheumatoid arthritis, unspecified (2) Dementia Code(s): F03.90 - UNSPECIFIED DEMENTIA WITHOUT BEHAVIORAL DISTURBANCE Qualifiers: Dementia type: Alzheimer's disease Alzheimer's disease onset: unspecified onset Dementia behavioral disturbance: without behavioral disturbance Qualified Code(s): G30.9 - Alzheimer's disease, unspecified; F02.80 - Dementia in other diseases classified elsewhere without behavioral disturbance (3) Small bowel obstruction Code(s): K56.609 - UNSP INTESTNL OBST, UNSP TO PARTIAL VERSUS COMPLETE OBST (4) Pneumonia Code(s): J18.9 - PNEUMONIA, UNSPECIFIED ORGANISM Qualifiers: Pneumonia type: due to unspecified organism Laterality: left Lung location: lower lobe of lung Qualified Code(s): J18.9 - Pneumonia, unspecified organism (5) Osteomyelitis Code(s): M86.9 - OSTEOMYELITIS, UNSPECIFIED Qualifiers: Osteomyelitis type: chronic multifocal Osteomyelitis location: foot Laterality: unspecified laterality Qualified Code(s): M86.379 - Chronic multifocal osteomyelitis, unspecified ankle and foot
[2020-02-11 09:30] LABS: ALBUMIN 2.4 g/dl (3.4-5.0); BLOOD UREA NITROGEN 16.8 mg/dL (7-18); CALCIUM 8.6 mg/dL (8.5-10.1); POTASSIUM 4.6 mmol/L (3.5-5.1)
[2020-02-11 09:34] LABS: BILIRUBIN,TOTAL 0.4 mg/dL (0.2-1); CREATININE 0.6 mg/dL (0.55-1.3); TOT PROT 6.8 g/dl (6.4-8.2)
[2020-02-11 09:37] LABS: BASO % 0.4 % (0-2.0); EOS % 0.9 % (0-4.5); HEMATOCRIT 31.9 % (32.4-45.2); HEMOGLOBIN 10.2 GM/dL (10.7-15.3); LYMPH % 29.3 % (8-40); MCH 27.9 pg (25.7-33.7); MCHC 32.1 g/dl (32.0-36.0); MEAN CELL VOLUME 86.9 fl (80-96); MEAN PLT VOLUME 7.4 fl (7.5-11.1); MONO % 8.5 % (3.8-10.2); NEUT % 60.9 % (42.8-82.8); PLATELET COUNT 472 K/MM3 (134-434); RBC 3.67 M/mm3 (3.60-5.2); RDW 14.4 % (11.6-15.6)
[2020-02-11] MEDS ORDERED: MINERAL OIL ENEMA 133 ML ENEMA RC SCH (10:00)
--- NOTE | 2020-02-11 11:26 | PN ---
Progress Note (short form) - Note Progress Note: 79 year old diabetic female, history of rheumatoid arthritis and dementia, presented to wound healing center with bilateral fifth MTPJ diabetic pressure ulcers and left ankle pressure ulcer with exposed hardware. POD 1 after b/l 5th metatarsal head resections. Just came back onto floor from xrays. No complaints. No overnight events. PMHx: DM, HTN, CVA, dementia, rheumatoid arthritis, severely contracted Meds: noted ALL: NKMA LAVELLE: Pedal pulses palpable, TG wnl, CFT brisk to all digits bilaterally. Dressings are nice clean dry and intact; no POP noted, digits warm to touch, no erythema, no signs of infection, no strikethrough Bone culture: Staph Imp: 79 year old diabetic, contracted female with bilateral 5th MTPJ diabetic pressure ulcers, osteomyelitis Evaluated and reviewed Cultures evaluated; will need [facility] antibiotics xrays reviewed change dressing every other day with xerofrom DSD to the surgical sites. f/u wound care upon discharge.
[2020-02-11] MEDS: FOLIC ACID 1 MG TABLET (FP) PO SCH (11:37)
[2020-02-11] MEDS: LACTOBACILLUS ACIDOPHILUS 1 TABLET PO SCH (11:37)
[2020-02-11] MEDS: ENOXAPARIN NA (PORCINE) 40 MG/0.4 ML DISP.SYRIN SQ SCH (11:37)
[2020-02-11] MEDS: metoPROLOL SUCCINATE 25 MG TAB.SR.24H (FP) PO SCH (11:38)
[2020-02-11] MEDS: traMADol HCL 50 MG TABLET PO SCH ×2 (11:38→21:27)
[2020-02-11] MEDS: GABAPENTIN 300 MG CAPSULE PO SCH ×2 (11:39→21:28)
[2020-02-11] MEDS: GENTAMICIN SO4 0.1% TOPICAL OINTMENT 15 GM/TUBE TUBE TP SCH ×2 (11:40→21:29)
[2020-02-11] MEDS: TIMOLOL 0.5% OPHTHALMIC SOL 5 ML BOTTLE OD SCH (11:41)
[2020-02-11] MEDS: CLOTRIMAZOLE/BETAMET DIPROP 15 GM TUBE TP SCH ×3 (11:41→22:16)
[2020-02-11] MEDS: POLYETHYLENE GLYCOL 3350 119 GM BTL PO SCH (12:00)
[2020-02-11] MEDS: ACETAMINOPHEN 500 MG TABLET (FP) PO PRN (16:06)
--- NOTE | 2020-02-11 16:22 | PN ---
Progress Note (short form) - Note Progress Note: s/p bilateral fifth MT head resections and bone biopsy 02/09 no complaints visitng with her daughter Vital Signs Period Temp Pulse Resp BP Sys/Page Pulse Ox Last 24 Hr 97.6 F-98.2 F 74-81 18-20 104-142/56-75 93-98 cor-rrr lungs clear abd soft,nt ext dressings intact (for change in am) CBC, BMP 02/11/20 08:20 02/11/20 08:20 Microbiology 02/10/20 12:20 Foot - Right Gram Stain - Final 02/10/20 12:20 Foot - Right Wound Culture - Preliminary Staphylococcus Latex Coag Pos 02/10/20 12:00 Wound Wound Culture - Preliminary Staphylococcus Latex Coag Pos 02/10/20 12:20 Bone Gram Stain - Final 02/10/20 12:20 Bone Tissue Culture - Preliminary Pending Organism 02/08/20 13:05 Blood - Peripheral Venous Blood Culture - Preliminary NO GROWTH OBTAINED AFTER 72 HOURS, INCUBATION TO CONTINUE FOR 2 DAYS. 02/08/20 13:05 Blood - Peripheral Venous Blood Culture - Preliminary NO GROWTH OBTAINED AFTER 72 HOURS, INCUBATION TO CONTINUE FOR 2 DAYS. 02/10/20 12:00 Bone Gram Stain - Final 02/10/20 12:00 Bone Tissue Culture - Preliminary NO AEROBIC GROWTH, 24 HRS a/p osteomyelitis-continue vanco and cefepime, await cultures and bone biopsy and pathology RA- nonambulatory with lower extrmity contractures- not sure how well she will heal given the etiology of the ulcers (pressure ulcers) and LE contractures d/w daughter at bedside
[2020-02-11] MEDS: VANCOMYCIN 1 GRAM (PRE-DOCKED) 1,000 MG/250 ML BAG IVPB SCH (19:43)
[2020-02-11] MEDS: LATANOPROST 0.005% OPHTH SOLN 2.5ML BOTTLE OU SCH (21:30)
[2020-02-12] MEDS ORDERED: DEXTROSE 5%-WATER 100 ML IVPB ONE ×2 (01:06→10:01)
[2020-02-12] MEDS ORDERED: CEFEPIME HCL 1 GM VIAL (RESTRICTED TO ID) ONE ×2 (01:06→10:01)
[2020-02-12] MEDS: CEFEPIME 1 GM in DEXTROSE 5%-WATER 100 ML IVPB SCH ×2 (01:30→10:29)
[2020-02-12] MEDS: DOCUSATE SODIUM 100 MG CAPSULE (FP) PO SCH ×3 (05:55→21:20)
[2020-02-12] MEDS: ACETAMINOPHEN 500 MG TABLET (FP) PO PRN ×3 (05:55→16:30)
[2020-02-12] MEDS: ARTIFICIAL TEARS (POLYVINYL ALCOHOL) OPTH DROPS OS SCH ×3 (05:56→21:23)
[2020-02-12] MEDS: GENTAMICIN SO4 0.1% TOPICAL OINTMENT 15 GM/TUBE TUBE TP SCH ×2 (09:58→21:03)
[2020-02-12] MEDS ORDERED: PT OWN MED DRAWER 7, Y5N ONE (10:01)
[2020-02-12] MEDS: FOLIC ACID 1 MG TABLET (FP) PO SCH (10:28)
[2020-02-12] MEDS: ENOXAPARIN NA (PORCINE) 40 MG/0.4 ML DISP.SYRIN SQ SCH (10:28)
[2020-02-12] MEDS: traMADol HCL 50 MG TABLET PO SCH ×2 (10:30→21:19)
[2020-02-12] MEDS: metoPROLOL SUCCINATE 25 MG TAB.SR.24H (FP) PO SCH (10:30)
[2020-02-12] MEDS: POLYETHYLENE GLYCOL 3350 119 GM BTL PO SCH (10:30)
[2020-02-12] MEDS: LACTOBACILLUS ACIDOPHILUS 1 TABLET PO SCH (10:30)
[2020-02-12] MEDS: GABAPENTIN 300 MG CAPSULE PO SCH ×2 (10:32→21:18)
[2020-02-12] MEDS: TIMOLOL 0.5% OPHTHALMIC SOL 5 ML BOTTLE OD SCH (10:36)
--- NOTE | 2020-02-12 12:38 | PN ---
Progress Note (short form) - Note Progress Note: s/p bilateral fifth MT head resections and bone biopsy 02/09 no complaints cultures all with MRSA Vital Signs Period Temp Pulse Resp BP Sys/Page Pulse Ox Last 24 Hr 97.8 F-98.5 F 66-83 16-18 123-152/49-75 96-98 cor-rrr lungs clear abd soft,nt dressings intact CBC, BMP 02/11/20 08:20 02/11/20 08:20 Microbiology 02/10/20 12:20 Bone Gram Stain - Final 02/10/20 12:20 Bone Tissue Culture - Preliminary Staphylococcus Latex Coag Pos 02/10/20 12:20 Bone Anaerobic Culture - Final NO ANAEROBES WERE ISOLATED 02/10/20 12:00 Bone Gram Stain - Final 02/10/20 12:00 Bone Tissue Culture - Preliminary Staphylococcus Latex Coag Pos 02/10/20 12:00 Bone Anaerobic Culture - Final NO ANAEROBES WERE ISOLATED 02/10/20 12:00 Wound Gram Stain - Final 02/10/20 12:00 Wound Wound Culture - Final S Aureus 02/10/20 12:20 Foot - Right Gram Stain - Final 02/10/20 12:20 Foot - Right Wound Culture - Final Mr S Aureus 02/08/20 13:05 Blood - Peripheral Venous Blood Culture - Preliminary NO GROWTH OBTAINED AFTER 72 HOURS, INCUBATION TO CONTINUE FOR 2 DAYS. 02/08/20 13:05 Blood - Peripheral Venous Blood Culture - Preliminary NO GROWTH OBTAINED AFTER 72 HOURS, INCUBATION TO CONTINUE FOR 2 DAYS. a/p osteomyelitis-MRSA, await pathology to see if patient will need assisted iv antibiotics check vanco level RA- nonambulatory with lower extrmity contractures- not sure how well she will heal given the etiology of the ulcers (pressure ulcers) and LE contractures d/w daughter at bedside
--- NOTE | 2020-02-12 13:17 | PN ---
Progress Note (short form) - Note Progress Note: No new complaint on IV antibiotics afebrile. Vital Signs Period Temp Pulse Resp BP Sys/Page Pulse Ox Last 24 Hr 97.8 F-98.5 F 66-83 16-18 123-152/49-75 96-98 Patient is comfortable HEENT normal Neck supple no JVD Lungs clear no wheezing Abdomen nontender no organomegaly bowel sounds normal Extremities no edema , Wound had dressing in place Neurologically he is alert awake oriented, nonfocal Skin no rash noted CBC, BMP 02/11/20 08:20 02/11/20 08:20 Assessment 79 yo lady with severe rheumatoid arthritis, dementia admitted for treatment of bilateral foot wounds, right confirmed osteomyelitis on CT as outpt fecal impaction Plan s/p bilateral 5th metatarsal excision on 02.10.20 tolerated procedure well on iv abx awaiting path and culture to decide length and type of abx Seen by ID
[2020-02-12] MEDS: CLOTRIMAZOLE/BETAMET DIPROP 15 GM TUBE TP SCH ×2 (14:25→21:23)
[2020-02-12] MEDS: VANCOMYCIN 1 GRAM (PRE-DOCKED) 1,000 MG/250 ML BAG IVPB SCH (18:27)
[2020-02-12] MEDS: LATANOPROST 0.005% OPHTH SOLN 2.5ML BOTTLE OU SCH (21:23)
[2020-02-13] MEDS: DOCUSATE SODIUM 100 MG CAPSULE (FP) PO SCH ×3 (05:48→21:56)
[2020-02-13] MEDS: ARTIFICIAL TEARS (POLYVINYL ALCOHOL) OPTH DROPS OS SCH ×3 (05:51→21:58)
[2020-02-13] MEDS: ACETAMINOPHEN 500 MG TABLET (FP) PO PRN ×2 (07:09→15:40)
[2020-02-13] MEDS ORDERED: PT OWN MED DRAWER 7, Y5N ONE (09:52)
[2020-02-13] MEDS: POLYETHYLENE GLYCOL 3350 119 GM BTL PO SCH (10:56)
[2020-02-13] MEDS: FOLIC ACID 1 MG TABLET (FP) PO SCH (10:57)
[2020-02-13] MEDS: metoPROLOL SUCCINATE 25 MG TAB.SR.24H (FP) PO SCH (10:57)
[2020-02-13] MEDS: traMADol HCL 50 MG TABLET PO SCH (10:57)
[2020-02-13] MEDS: ENOXAPARIN NA (PORCINE) 40 MG/0.4 ML DISP.SYRIN SQ SCH (10:57)
[2020-02-13] MEDS: GABAPENTIN 300 MG CAPSULE PO SCH ×2 (11:01→21:57)
[2020-02-13] MEDS: LACTOBACILLUS ACIDOPHILUS 1 TABLET PO SCH (11:01)
[2020-02-13] MEDS: GENTAMICIN SO4 0.1% TOPICAL OINTMENT 15 GM/TUBE TUBE TP SCH ×2 (11:01→21:56)
[2020-02-13] MEDS: CLOTRIMAZOLE/BETAMET DIPROP 15 GM TUBE TP SCH ×2 (11:01→21:58)
[2020-02-13] MEDS: TIMOLOL 0.5% OPHTHALMIC SOL 5 ML BOTTLE OD SCH (11:02)
--- NOTE | 2020-02-13 13:30 | PN ---
Progress Note (short form) - Note Progress Note: No new complaint on IV antibiotics afebrile. Vital Signs Period Temp Pulse Resp BP Sys/Page Pulse Ox Last 24 Hr 97.7 F-98.4 F 69-85 18-18 103-148/50-79 95-99 Patient is comfortable HEENT normal Neck supple no JVD Lungs clear no wheezing Abdomen nontender no organomegaly bowel sounds normal Extremities no edema , Wound had dressing in place Neurologically he is alert awake oriented, nonfocal Skin no rash noted CBC, BMP 02/11/20 08:20 02/11/20 08:20 Assessment 79 yo lady with severe rheumatoid arthritis, dementia admitted for treatment of bilateral foot wounds, right confirmed osteomyelitis on CT as outpt fecal impaction Plan s/p bilateral 5th metatarsal excision on 02.10.20 tolerated procedure well on iv abx awaiting path and culture to decide length and type of abx Seen by ID
--- NOTE | 2020-02-13 15:02 | PN ---
Progress Note (short form) - Note Progress Note: Podiatry F/U: Seen/evaluated at bedside NAD. Pain well controlled. Denies F/V/N/C/SOB/CP. Afebrile. S/p bilateral fifth metatarsal head resections with bone biopsy. LAVELLE: Pedal pulses palpable 2/4, TG wnl, CFT brisk to all digits bilaterally. There are no ischemic changes to the foot bilaterally. The foot is warm and well perfused bilaterally. Sutures well coapted, no dehiscence noted bilaterally. No purulent drainage, no fluctuance, no streaking ascending cellulitis, no signs of active infection bilaterally. Bilateral sub-fifth metatarsal diabetic pressure ulcers with granular base and minimal slough, no bone exposed, no signs of infection. OR Cx: MRSA Imp: 79 year old diabetic female s/p bilateral fifth metatarsal head resection with bone biopsy 1. IV abx per infectious disease 2. DSD bilateral feet 3. Continue offloading measures and positional changes 4. F/u operative pathology. Bone cultures demonstrate MRSA. 5. Will follow
[2020-02-13] MEDS: VANCOMYCIN 1 GRAM (PRE-DOCKED) 1,000 MG/250 ML BAG IVPB SCH (18:21)
[2020-02-13] MEDS: traMADol HCL 50 MG TABLET PO PRN (19:00)
[2020-02-13] MEDS: LATANOPROST 0.005% OPHTH SOLN 2.5ML BOTTLE OU SCH (21:58)
[2020-02-14] MEDS: DOCUSATE SODIUM 100 MG CAPSULE (FP) PO SCH ×3 (05:56→22:17)
[2020-02-14] MEDS: traMADol HCL 50 MG TABLET PO PRN ×2 (05:56→15:55)
[2020-02-14] MEDS: ARTIFICIAL TEARS (POLYVINYL ALCOHOL) OPTH DROPS OS SCH ×3 (05:57→22:17)
--- NOTE | 2020-02-14 09:16 | PN ---
Progress Note (short form) - Note Progress Note: s/p bilateral fifth MT head resections and bone biopsy 02/09 no complaints cultures all with MRSA Vital Signs Period Temp Pulse Resp BP Sys/Page Pulse Ox Last 24 Hr 97.6 F-98.0 F 74-80 18-18 135-164/55-75 96-99 cor-rrr lungs clear abd soft,nt ext dressings intact podiatry noted reviewed CBC, BMP 02/11/20 08:20 02/11/20 08:20 Microbiology 02/08/20 13:05 Blood - Peripheral Venous Blood Culture - Final NO GROWTH AFTER 5 DAYS INCUBATION 02/08/20 13:05 Blood - Peripheral Venous Blood Culture - Final NO GROWTH AFTER 5 DAYS INCUBATION 02/10/20 12:20 Bone Gram Stain - Final 02/10/20 12:20 Bone Tissue Culture - Final Presumptive Mrsa (Pbp2a Pos) 02/10/20 12:20 Bone Anaerobic Culture - Final NO ANAEROBES WERE ISOLATED 02/10/20 12:00 Bone Gram Stain - Final 02/10/20 12:00 Bone Tissue Culture - Final Presumptive Mrsa (Pbp2a Pos) 02/10/20 12:00 Bone Anaerobic Culture - Final NO ANAEROBES WERE ISOLATED 02/10/20 12:00 Wound Gram Stain - Final 02/10/20 12:00 Wound Wound Culture - Final S Aureus 02/10/20 12:20 Foot - Right Gram Stain - Final 02/10/20 12:20 Foot - Right Wound Culture - Final S Aureus vancco rough 11.6 a/p osteomyelitis-MRSA, await pathology to see if patient will need senior care iv antibiotics increase vancomycin to 1250 daily RA- nonambulatory with lower extrmity contractures- not sure how well she will heal given the etiology of the ulcers (pressure ulcers) and LE contractures
[2020-02-14] MEDS: FOLIC ACID 1 MG TABLET (FP) PO SCH (09:53)
[2020-02-14] MEDS: metoPROLOL SUCCINATE 25 MG TAB.SR.24H (FP) PO SCH (09:53)
[2020-02-14] MEDS: ENOXAPARIN NA (PORCINE) 40 MG/0.4 ML DISP.SYRIN SQ SCH (09:53)
[2020-02-14] MEDS: LACTOBACILLUS ACIDOPHILUS 1 TABLET PO SCH (09:53)
[2020-02-14] MEDS: GABAPENTIN 300 MG CAPSULE PO SCH ×2 (09:54→22:18)
[2020-02-14] MEDS: CLOTRIMAZOLE/BETAMET DIPROP 15 GM TUBE TP SCH ×2 (09:54→22:18)
[2020-02-14] MEDS: GENTAMICIN SO4 0.1% TOPICAL OINTMENT 15 GM/TUBE TUBE TP SCH ×2 (09:55→22:17)
[2020-02-14] MEDS: TIMOLOL 0.5% OPHTHALMIC SOL 5 ML BOTTLE OD SCH (09:55)
[2020-02-14] MEDS: POLYETHYLENE GLYCOL 3350 119 GM BTL PO SCH (15:55)
[2020-02-14] MEDS ORDERED: PT OWN MED DRAWER 7, Y5N ONE (17:27)
[2020-02-14] MEDS: VANCOMYCIN HCL 1,250 MG in DEXTROSE 5%-WATER - 250 ML IVPB SCH (18:13)
[2020-02-14] MEDS: AMINO ACIDS/PROTEIN HYDROLYS 30 ML LIQUID.PKT PO SCH (18:13)
--- NOTE | 2020-02-14 19:52 | PN ---
Progress Note (short form) - Note Progress Note: No new complaint on IV antibiotics afebrile. Vital Signs Period Temp Pulse Resp BP Sys/Page Pulse Ox Last 24 Hr 97.6 F-98.1 F 79-94 18-22 107-136/59-81 95-97 Patient is comfortable HEENT normal Neck supple no JVD Lungs clear no wheezing Abdomen nontender no organomegaly bowel sounds normal Extremities no edema , Wound had dressing in place Neurologically he is alert awake oriented, nonfocal Skin no rash noted CBC, BMP 02/11/20 08:20 02/11/20 08:20 Current Medications Generic Name Dose Route Start Last Admin Trade Name Freq PRN Reason Stop Dose Admin Acetaminophen 1,000 mg 02/10/20 12:58 02/13/20 15:40 Tylenol - PO 1,000 mg Q8H PRN Administration PAIN 1-3 Amino Acids 30 ml 02/14/20 17:30 02/14/20 18:13 Prosource No Carb Liquid Pkt PO 30 ml BID@0800,1730 EDITH Administration Artificial Tears 1 drop 02/10/20 14:00 02/14/20 15:56 Artificial Tears OS 1 drop TID EDITH Administration Clotrimazole 1 applic 02/10/20 22:00 02/14/20 09:54 Lotrisone Cream (Small Tube) TP 1 applic BID EDITH Administration Docusate Sodium 100 mg 02/10/20 14:00 02/14/20 15:55 Colace - PO 100 mg TID EDITH Administration Enoxaparin Sodium 40 mg 02/11/20 10:00 02/14/20 09:53 Lovenox - SQ 40 mg DAILY EDITH Administration Folic Acid 1 mg 02/11/20 10:00 02/14/20 09:53 Folic Acid - PO 1 mg DAILY EDITH Administration Gabapentin 300 mg 02/10/20 22:00 02/14/20 09:54 Neurontin - PO 300 mg BID EDITH Administration Gentamicin Sulfate 1 applic 02/10/20 22:00 02/14/20 09:55 Garamycin 0.1% Ointment - TP Not Given BID EDITH Vancomycin HCl 1,250 mg/ 250 mls @ 250 mls/2 hr 02/14/20 18:00 02/14/20 18:13 Dextrose IVPB 250 mls/2 hr Q24H EDITH Administration Protocol Lactobacillus Acidophilus 1 tab 02/11/20 10:00 02/14/20 09:53 Bacid - PO 1 tab DAILY EDITH Administration Latanoprost 1 drop 02/10/20 22:00 02/13/20 21:58 Xalatan 0.005% Eye Drops - OU 1 drop HS EDITH Administration Metoprolol Succinate 25 mg 02/11/20 10:00 02/14/20 09:53 Toprol Xl - PO 25 mg DAILY EDITH Administration Polyethylene Glycol 17 gm 02/11/20 10:00 02/14/20 15:55 Miralax (For Daily Use) - PO 17 grams DAILY EDITH Administration Timolol Maleate 1 drop 02/11/20 10:00 02/14/20 09:55 Timoptic 0.5% OD 1 drop DAILY EDITH Administration Tramadol HCl 50 mg 02/13/20 18:50 02/14/20 15:55 Ultram - PO 50 mg Q6H PRN Administration PAIN LEVEL 7 - 10 Assessment 79 yo lady with severe rheumatoid arthritis, dementia admitted for treatment of bilateral foot wounds, right confirmed osteomyelitis on CT as outpt fecal impaction Plan s/p bilateral 5th metatarsal excision on 02.10.20 tolerated procedure well on iv abx awaiting path and culture to decide length and type of abx Seen by ID today and podiatery
[2020-02-14] MEDS: LATANOPROST 0.005% OPHTH SOLN 2.5ML BOTTLE OU SCH (22:19)
[2020-02-15] MEDS: DOCUSATE SODIUM 100 MG CAPSULE (FP) PO SCH ×3 (06:02→21:50)
[2020-02-15] MEDS: ARTIFICIAL TEARS (POLYVINYL ALCOHOL) OPTH DROPS OS SCH ×3 (06:03→21:50)
--- NOTE | 2020-02-15 08:05 | PN ---
Progress Note (short form) - Note Progress Note: no events over the weekend Microbiology 02/08/20 13:05 Blood - Peripheral Venous Blood Culture - Final NO GROWTH AFTER 5 DAYS INCUBATION 02/08/20 13:05 Blood - Peripheral Venous Blood Culture - Final NO GROWTH AFTER 5 DAYS INCUBATION 02/10/20 12:20 Bone Gram Stain - Final 02/10/20 12:20 Bone Tissue Culture - Final Presumptive Mrsa (Pbp2a Pos) 02/10/20 12:20 Bone Anaerobic Culture - Final NO ANAEROBES WERE ISOLATED 02/10/20 12:00 Bone Gram Stain - Final 02/10/20 12:00 Bone Tissue Culture - Final Presumptive Mrsa (Pbp2a Pos) 02/10/20 12:00 Bone Anaerobic Culture - Final NO ANAEROBES WERE ISOLATED 02/10/20 12:00 Wound Gram Stain - Final 02/10/20 12:00 Wound Wound Culture - Final S Aureus 02/10/20 12:20 Foot - Right Gram Stain - Final 02/10/20 12:20 Foot - Right Wound Culture - Final S Aureus Active Medications Acetaminophen (Tylenol -) 1,000 mg PO Q8H PRN Amino Acids (Prosource No Carb Liquid Pkt) 30 ml PO BID@0800,1730 EDITH Artificial Tears (Artificial Tears) 1 drop OS TID EDITH Clotrimazole (Lotrisone Cream (Small Tube)) 1 applic TP BID EDITH Docusate Sodium (Colace -) 100 mg PO TID EDITH Enoxaparin Sodium (Lovenox -) 40 mg SQ DAILY EDITH Folic Acid (Folic Acid -) 1 mg PO DAILY EDITH Gabapentin (Neurontin -) 300 mg PO BID EDITH Gentamicin Sulfate (Garamycin 0.1% Ointment -) 1 applic TP BID EDITH Vancomycin HCl 1,250 mg/ (Dextrose) 250 mls @ 250 mls/2 hr IVPB Q24H EDITH; Protocol Lactobacillus Acidophilus (Bacid -) 1 tab PO DAILY EDITH Latanoprost (Xalatan 0.005% Eye Drops -) 1 drop OU HS EDITH Metoprolol Succinate (Toprol Xl -) 25 mg PO DAILY EDITH Polyethylene Glycol (Miralax (For Daily Use) -) 17 gm PO DAILY EDITH Timolol Maleate (Timoptic 0.5%) 1 drop OD DAILY EDITH Tramadol HCl (Ultram -) 50 mg PO Q6H PRN Vital Signs Period Temp Pulse Resp BP Sys/Page Pulse Ox Last 24 Hr 97.6 F-98.6 F 72-94 18-22 107-159/53-81 93-98 S1S2 rrr lungs cta good air entry abd distended,non tender on deep palpation hips, knees, ankles flexed, contracted bilateral plantar wounds are dressed no edema awake, alert, oriented to person 79 yo lady with severe rheumatoid arthritis with functional quadriplegia, de mentia admitted for treatment of bilateral foot wounds, right confirmed osteomyelitis on CT as outpt fecal impaction s/p bilateral 5th metatarsal excision on 02.10.20 tolerated procedure well on iv Vanco cultures positive for MRSA awaiting path to decide length of abx use repeat covid 19 for dc planing back to [place] Problem List - Problems (1) Rheumatoid arthritis Code(s): M06.9 - RHEUMATOID ARTHRITIS, UNSPECIFIED Qualifiers: Rheumatoid arthritis location: multiple sites Rheumatoid factor presence: unspecified presence Qualified Code(s): M06.9 - Rheumatoid arthritis, unspecified (2) Dementia Code(s): F03.90 - UNSPECIFIED DEMENTIA WITHOUT BEHAVIORAL DISTURBANCE Qualifiers: Dementia type: Alzheimer's disease Alzheimer's disease onset: unspecified onset Dementia behavioral disturbance: without behavioral disturbance Qualified Code(s): G30.9 - Alzheimer's disease, unspecified; F02.80 - Dementia in other diseases classified elsewhere without behavioral disturbance (3) Small bowel obstruction Code(s): K56.609 - UNSP INTESTNL OBST, UNSP TO PARTIAL VERSUS COMPLETE OBST (4) Pneumonia Code(s): J18.9 - PNEUMONIA, UNSPECIFIED ORGANISM Qualifiers: Pneumonia type: due to unspecified organism Laterality: left Lung location: lower lobe of lung Qualified Code(s): J18.9 - Pneumonia, unspecified organism (5) Osteomyelitis Code(s): M86.9 - OSTEOMYELITIS, UNSPECIFIED Qualifiers: Osteomyelitis type: chronic multifocal Osteomyelitis location: foot Laterality: unspecified laterality Qualified Code(s): M86.379 - Chronic multifocal osteomyelitis, unspecified ankle and foot
[2020-02-15 08:46] LABS: BASO % 0.6 % (0-2.0); EOS % 3.8 % (0-4.5); HEMATOCRIT 32.2 % (32.4-45.2); HEMOGLOBIN 10.4 GM/dL (10.7-15.3); LYMPH % 25.1 % (8-40); MCH 28.2 pg (25.7-33.7); MCHC 32.5 g/dl (32.0-36.0); MEAN CELL VOLUME 86.8 fl (80-96); MEAN PLT VOLUME 7.1 fl (7.5-11.1); MONO % 7.6 % (3.8-10.2); NEUT % 62.9 % (42.8-82.8); PLATELET COUNT 444 K/MM3 (134-434); RBC 3.71 M/mm3 (3.60-5.2); RDW 14.6 % (11.6-15.6); WHITE BLOOD COUNT 8.2 K/mm3 (4.0-10.0)
[2020-02-15] MEDS: AMINO ACIDS/PROTEIN HYDROLYS 30 ML LIQUID.PKT PO SCH ×2 (08:50→17:14)
[2020-02-15] MEDS ORDERED: PT OWN MED DRAWER 7, Y5N ONE ×2 (10:05→17:12)
[2020-02-15] MEDS: POLYETHYLENE GLYCOL 3350 119 GM BTL PO SCH (10:09)
[2020-02-15] MEDS: metoPROLOL SUCCINATE 25 MG TAB.SR.24H (FP) PO SCH (10:09)
[2020-02-15] MEDS: LACTOBACILLUS ACIDOPHILUS 1 TABLET PO SCH (10:09)
[2020-02-15] MEDS: ENOXAPARIN NA (PORCINE) 40 MG/0.4 ML DISP.SYRIN SQ SCH (10:09)
[2020-02-15] MEDS: FOLIC ACID 1 MG TABLET (FP) PO SCH (10:09)
[2020-02-15] MEDS: TIMOLOL 0.5% OPHTHALMIC SOL 5 ML BOTTLE OD SCH (10:10)
[2020-02-15] MEDS: CLOTRIMAZOLE/BETAMET DIPROP 15 GM TUBE TP SCH ×2 (10:10→21:49)
[2020-02-15] MEDS: GABAPENTIN 300 MG CAPSULE PO SCH ×2 (10:10→21:51)
[2020-02-15] MEDS: GENTAMICIN SO4 0.1% TOPICAL OINTMENT 15 GM/TUBE TUBE TP SCH ×2 (10:29→21:51)
[2020-02-15] MEDS: traMADol HCL 50 MG TABLET PO PRN (10:36)
--- NOTE | 2020-02-15 15:51 | PN ---
Progress Note (short form) - Note Progress Note: Podiatry F/U: Seen/evaluated at bedside, NAD. Pain is well controlled. Denies F/V/N/C/SOB/CP. Afebrile. S/p bilateral 5th metatarsal head resection with bone biopsy. LAVELLE: Pedal pulses palpable, TG wnl, CFT brisk to all digits bilaterally. There are no ischemic changes to the foot. The foot is warm and well perfused bilaterally. Bilateral 5th ray surgical sites with sutures well coapted, no dehiscence noted. There is no purulent drainage, no fluctuance, no streaking ascending cellulitis, no signs of active infection. Bilateral sub-fifth metatarsal diabetic pressure ulcers with strong granular base, hyperkeratotic edges, no probing to bone. Severe LE contractures bilaterally. OR Cx: MRSA Imp: 79 year old diabetic female with bilateral 5th MTPJ diabetic pressure ulcers, osteomyelitis 1. IV abx per infectious disease 2. Xeroform and DSD applied to bilateral feet 3. Awaiting operative pathology 4. Offloading measures 5. Will follow
--- NOTE | 2020-02-15 16:14 | PATH ---
Surgical Pathology Report Patient Name: SHAUNA MAYERS Med. Rec. #: [id number] /Age/Gender: 1940 (Age: 79) / F Account: [id number] Location: [address] [place] [address] [facility] Taken: 02/10/2020 Received: 02/10/2020 Reported: 02/15/2020 Physicians: ERLINDA Villarreal M.D. Specimen(s) Received A: LEFT FIFTH METATARSAL HEAD B: RIGHT FIFTH METATARSAL HEAD Clinical History Osteomyelitis Final Diagnosis A. LEFT FIFTH METATARSAL HEAD, RESECTION: PORTIONS OF BONE WITH CHRONIC OSTEOMYELITIS. ADJACENT FIBROSKELETAL MUSCLE WITH CHRONIC INFLAMMATION. B. RIGHT FIFTH METATARSAL HEAD, RESECTION: PORTION OF BONE WITH REMODELING AND REACTIVE CHANGE. NEGATIVE FOR OSTEOMYELITIS. Electronically Signed Jeannette Szymanski M.D. Gross Description A. Received in formalin labeled "left fifth metatarsal head," are 3 gamez, irregular portions of bone ranging from 1.2 x 0.8 x 0.3 cm to 2.0 x 0.5 x 0.3 cm. The specimens are submitted in toto in one cassette, following decalcification. B. Received in formalin labeled "right fifth metatarsal head," is a 1.2 x 1.1 x 0.5 cm gamez-brown portion of bone. The specimen is bisected and entirely submitted in one cassette, following decalcification. /02/11/2020 saudi/02/11/2020
--- NOTE | 2020-02-15 16:49 | PN ---
Progress Note (short form) - Note Progress Note: s/p bilateral fifth MT head resections and bone biopsy 02/09 no complaints cultures all with MRSA waiting for pathology Vital Signs Period Temp Pulse Resp BP Sys/Page Pulse Ox Last 24 Hr 97.6 F-98.6 F 72-86 18-20 119-159/53-81 93-98 cor-rrr lungs decreased bs at bases abd soft,nt ext dressings intact CBC, BMP 02/15/20 08:25 02/11/20 08:20 Microbiology 02/08/20 13:05 Blood - Peripheral Venous Blood Culture - Final NO GROWTH AFTER 5 DAYS INCUBATION 02/08/20 13:05 Blood - Peripheral Venous Blood Culture - Final NO GROWTH AFTER 5 DAYS INCUBATION 02/10/20 12:20 Bone Gram Stain - Final 02/10/20 12:20 Bone Tissue Culture - Final Presumptive Mrsa (Pbp2a Pos) 02/10/20 12:20 Bone Anaerobic Culture - Final NO ANAEROBES WERE ISOLATED 02/10/20 12:00 Bone Gram Stain - Final 02/10/20 12:00 Bone Tissue Culture - Final Presumptive Mrsa (Pbp2a Pos) 02/10/20 12:00 Bone Anaerobic Culture - Final NO ANAEROBES WERE ISOLATED 02/10/20 12:00 Wound Gram Stain - Final 02/10/20 12:00 Wound Wound Culture - Final S Aureus 02/10/20 12:20 Foot - Right Gram Stain - Final 02/10/20 12:20 Foot - Right Wound Culture - Final S Aureus a/p osteomyelitis-MRSA, await pathology to see if patient will need usp iv antibiotics increase vancomycin to 1250 daily check trough RA- nonambulatory with lower extrmity contractures- not sure how well she will heal given the etiology of the ulcers (pressure ulcers) and LE contractures
[2020-02-15] MEDS: VANCOMYCIN HCL 1,250 MG in DEXTROSE 5%-WATER - 250 ML IVPB SCH (17:14)
[2020-02-15] MEDS: LATANOPROST 0.005% OPHTH SOLN 2.5ML BOTTLE OU SCH (21:49)
[2020-02-16] MEDS: DOCUSATE SODIUM 100 MG CAPSULE (FP) PO SCH ×3 (05:43→22:52)
[2020-02-16] MEDS: ARTIFICIAL TEARS (POLYVINYL ALCOHOL) OPTH DROPS OS SCH ×3 (05:44→22:52)
[2020-02-16] MEDS: traMADol HCL 50 MG TABLET PO PRN ×3 (05:49→22:52)
--- NOTE | 2020-02-16 08:30 | PN ---
Progress Note (short form) - Note Progress Note: CBC, BMP 02/15/20 08:25 Vital Signs Period Temp Pulse Resp BP Sys/Page Pulse Ox Last 24 Hr 97.8 F-98.9 F 74-86 18-18 128-145/59-71 95-98 S1S2 rrr lungs cta good air entry abd distended,non tender on deep palpation hips, knees, ankles flexed, contracted bilateral plantar wounds are dressed no edema awake, alert, oriented to person 79 yo lady with severe rheumatoid arthritis with functional quadriplegia, dementia admitted for treatment of bilateral foot wounds, right confirmed osteomyelitis on CT as outpt fecal impaction s/p bilateral 5th metatarsal excision on 02.10.20 tolerated procedure well on iv Vanco cultures positive for MRSA path shows osteomyelitis on left foot-does not mention margins if margins are not clear will need picc and iv vanco for several weeks dc planning in 1-2 days once path is updated Problem List - Problems (1) Rheumatoid arthritis Code(s): M06.9 - RHEUMATOID ARTHRITIS, UNSPECIFIED Qualifiers: Rheumatoid arthritis location: multiple sites Rheumatoid factor presence: unspecified presence Qualified Code(s): M06.9 - Rheumatoid arthritis, unspecified (2) Dementia Code(s): F03.90 - UNSPECIFIED DEMENTIA WITHOUT BEHAVIORAL DISTURBANCE Qualifiers: Dementia type: Alzheimer's disease Alzheimer's disease onset: unspecified onset Dementia behavioral disturbance: without behavioral disturbance Qualified Code(s): G30.9 - Alzheimer's disease, unspecified; F02.80 - Dementia in other diseases classified elsewhere without behavioral disturbance (3) Small bowel obstruction Code(s): K56.609 - UNSP INTESTNL OBST, UNSP TO PARTIAL VERSUS COMPLETE OBST (4) Pneumonia Code(s): J18.9 - PNEUMONIA, UNSPECIFIED ORGANISM Qualifiers: Pneumonia type: due to unspecified organism Laterality: left Lung location: lower lobe of lung Qualified Code(s): J18.9 - Pneumonia, unspecified organism (5) Osteomyelitis Code(s): M86.9 - OSTEOMYELITIS, UNSPECIFIED Qualifiers: Osteomyelitis type: chronic multifocal Osteomyelitis location: foot Laterality: unspecified laterality Qualified Code(s): M86.379 - Chronic mult ifocal osteomyelitis, unspecified ankle and foot
[2020-02-16 09:09] LABS: ALBUMIN 2.6 g/dl (3.4-5.0); BILIRUBIN,TOTAL 0.3 mg/dL (0.2-1); BLOOD UREA NITROGEN 19.8 mg/dL (7-18); CALCIUM 9.2 mg/dL (8.5-10.1); CREATININE 0.5 mg/dL (0.55-1.3); POTASSIUM 4.6 mmol/L (3.5-5.1); TOT PROT 7.7 g/dl (6.4-8.2)
--- NOTE | 2020-02-16 09:46 | PN ---
Progress Note (short form) - Note Progress Note: Podiatry F/U: Seen/evaluated at bedside NAD. Pain controlled. Denies F/V/N/C/SOB/CP. Afebrile. S/p bilateral 5th metatarsal head resections with bone biopsy. Patient remains severely contracture B/L LEs. LAVELLE: Pedal pulses palpable, TG wnl, CFT brisk to all digits bilaterally. There are no ischemic changes to the foot bilaterally. The foot is warm and well perfused bilaterally. There are bilateral sub-fifth metatarsal diabetic pressure ulcers healing well, granular base, minimal slough, no probing to bone, no purulence, no streaking cellulitis, no signs of infection. Dorsal fifth ray surgical incision sites with sutures well coapted, no dehiscence noted. No purulence, no fluctuance, no streaking cellulitis, no signs of infection. OR Cx: MRSA OR Path: chronic osteomyelitis left fifth metatarsal Imp: 79 year old diabetic female with bilateral sub-fifth metatarsal diabetic pressure ulcers and chronic osteomyelitis left fifth metatarsal 1. Abx per infectious disease; will decide on Abx therapy now that pathology is reported. 2. Xeroform and DSD bilateral feet 3. Continue persistent offloading measures 4. Will follow Maxim Gil DPM
[2020-02-16] MEDS: ENOXAPARIN NA (PORCINE) 40 MG/0.4 ML DISP.SYRIN SQ SCH (11:06)
[2020-02-16] MEDS: FOLIC ACID 1 MG TABLET (FP) PO SCH (11:06)
[2020-02-16] MEDS: AMINO ACIDS/PROTEIN HYDROLYS 30 ML LIQUID.PKT PO SCH ×2 (11:06→19:01)
[2020-02-16] MEDS: metoPROLOL SUCCINATE 25 MG TAB.SR.24H (FP) PO SCH (11:06)
[2020-02-16] MEDS: LACTOBACILLUS ACIDOPHILUS 1 TABLET PO SCH (11:06)
[2020-02-16] MEDS: GENTAMICIN SO4 0.1% TOPICAL OINTMENT 15 GM/TUBE TUBE TP SCH ×2 (11:07→22:51)
[2020-02-16] MEDS: POLYETHYLENE GLYCOL 3350 119 GM BTL PO SCH (11:07)
[2020-02-16] MEDS: GABAPENTIN 300 MG CAPSULE PO SCH ×2 (11:08→22:51)
[2020-02-16] MEDS: TIMOLOL 0.5% OPHTHALMIC SOL 5 ML BOTTLE OD SCH (11:09)
[2020-02-16] MEDS: CLOTRIMAZOLE/BETAMET DIPROP 15 GM TUBE TP SCH ×2 (11:09→22:53)
--- NOTE | 2020-02-16 16:14 | PN ---
Progress Note (short form) - Note Progress Note: d/w pathology left MT bones all with osteomyelilitis- unable to assess margins podiatry noted reviewed- wounds are clean Vital Signs Period Temp Pulse Resp BP Sys/Page Pulse Ox Last 24 Hr 97.8 F-98.9 F 76-85 18-20 128-148/55-71 95-98 cor-rrr lungs clear abd soft,nt dressings intact CBC, BMP 02/15/20 08:25 02/16/20 08:11 crp is 6.8 a/p ostoemyelitis - MRSA would plan to place picc line in am and complete 6 weeks of treatment with vancomycin-day #7 today- will need another 5 weeks have ordered vanco trough today will need weekly cbc, cmp, vanco trough while on iv antibiotics please call back if needed
[2020-02-16] MEDS ORDERED: PT OWN MED DRAWER 7, Y5N ONE (17:35)
[2020-02-16] MEDS: LATANOPROST 0.005% OPHTH SOLN 2.5ML BOTTLE OU SCH (22:53)
[2020-02-17] MEDS: VANCOMYCIN HCL 1,250 MG in DEXTROSE 5%-WATER - 250 ML IVPB SCH (04:16)
[2020-02-17] MEDS: traMADol HCL 50 MG TABLET PO PRN (06:41)
[2020-02-17] MEDS: DOCUSATE SODIUM 100 MG CAPSULE (FP) PO SCH ×2 (06:41→14:50)
[2020-02-17] MEDS: ARTIFICIAL TEARS (POLYVINYL ALCOHOL) OPTH DROPS OS SCH ×2 (06:42→14:50)
--- NOTE | 2020-02-17 07:49 | DS ---
Physical Examination Vital Signs: Vital Signs Temperature 98.4 F 02/17/20 06:00 Pulse Rate 78 02/17/20 06:00 Respiratory Rate 18 02/17/20 06:00 Blood Pressure 143/70 02/17/20 06:00 O2 Sat by Pulse Oximetry (%) 97 02/17/20 06:00 Constitutional: Yes: No Distress, Calm Eyes: Yes: Other (left corneal opacity) HENT: Yes: Atraumatic Neck: Yes: Supple, Trachea Midline Cardiovascular: Yes: Regular Rate and Rhythm Respiratory: Yes: CTA Bilaterally Gastrointestinal: Yes: Normal Bowel Sounds, Distention Musculoskeletal: Yes: Joint Stiffness, Other (contracted extremities) Edema: No Peripheral Pulses WNL: Yes Wound/Incision: Yes: Dressing Dry and Intact Psychiatric: Yes: WNL Labs: CBC, BMP 02/15/20 08:25 02/16/20 08:11 Discharge Summary Problems reviewed: Yes Reason For Visit: OSTEOMYELITIS Current Active Problems Dementia (Acute) Osteomyelitis (Acute) Pneumonia (Acute) Rheumatoid arthritis (Acute) Small bowel obstruction (Acute) Procedures: Principal: Procedure performed: b/l 5th MT head resection and bone biopsy 02.10.2020 Hospital Course: 79 yo lady with severe rheumatoid arthritis with functional quadriplegia, dementia admitted for treatment of bilateral foot wounds, concern for osteomyelitis fecal impaction s/p bilateral 5th metatarsal excision on 02.10.20 tolerated procedure well on iv Vanco wound cultures positive for MRSA path shows osteomyelitis on left foot complete total of 6 weeks of iv vanco-will finish on 03.23.2020 weekly cbc, cmp, vanco level until treatment is completed local wound care Xeroform and DSD bilateral feet daily Continue persistent offloading measure Condition: Stable - Instructions Diet, Activity, Other Instructions: iv vancomycin until 03.23.2020 weekly cbc, cmp and vanco level, while on iv abx Xeroform and DSD bilateral feet daily Continue persistent offloading measure Referrals: Shaista Reagan MD [Primary Care Provider] - Disposition: SNF FACILITY - Home Medications Comprehensive Discharge Medication List: Ambulatory Orders Acetaminophen [Tylenol .Extra-Strength -] 2 tab PO Q8H PRN 02/08/20 Adalimumab [Humira Pen] 40 mg PO Q14D 02/08/20 Albuterol Sulfate 0.042% [Ventolin 0.042% (Half-Strength) -] 1 appful IH Q6H PRN 02/08/20 Aspirin [ASA -] 81 mg PO DAILY 02/08/20 Chlorhexidine Gluconate [Peridex -] 15 mg PO BID 02/08/20 Folic Acid - 1 mg PO DAILY 02/08/20 Gabapentin 300 mg PO BID 02/08/20 Gentamicin 0.1% Ointment [Garamycin 0.1% Ointment -] 1 appful TP BID 02/08/20 Hydrocortisone 1% Cream [Hytone 1% Cream -] 1 appful TP Q12H 02/08/20 Latanoprost 0.005% Eye Drops [Xalatan 0.005% Eye Drops -] 1 drop OU HS 02/08/20 Metoprolol Succinate [Toprol XL -] 25 mg PO DAILY 02/08/20 Polyethylene Glycol 3350 [Miralax 119 gm Btl -] 17 gm PO DAILY 02/08/20 Polyvinyl Alcohol/Povidone [Gnp Artificial Tears Drops] 1 drop OS TID 02/08/20 Povidone-Iodine [Betadine -] 1 appful TP DAILY 02/08/20 Sorbitol Solution [Sorbitol] 15 ml PO DAILY 02/08/20 Timolol 0.5% [Timoptic 0.5%] 1 drop OD DAILY 02/08/20 traMADol HCL [Ultram -] 1 tab PO BID 02/08/20
[2020-02-17] MEDS: AMINO ACIDS/PROTEIN HYDROLYS 30 ML LIQUID.PKT PO SCH ×2 (08:50→18:28)
[2020-02-17] MEDS: FOLIC ACID 1 MG TABLET (FP) PO SCH (09:03)
[2020-02-17] MEDS: LACTOBACILLUS ACIDOPHILUS 1 TABLET PO SCH (09:03)
[2020-02-17] MEDS: CLOTRIMAZOLE/BETAMET DIPROP 15 GM TUBE TP SCH (09:03)
[2020-02-17] MEDS: ENOXAPARIN NA (PORCINE) 40 MG/0.4 ML DISP.SYRIN SQ SCH (09:03)
[2020-02-17] MEDS: metoPROLOL SUCCINATE 25 MG TAB.SR.24H (FP) PO SCH (09:03)
[2020-02-17] MEDS: GENTAMICIN SO4 0.1% TOPICAL OINTMENT 15 GM/TUBE TUBE TP SCH (09:03)
[2020-02-17] MEDS: TIMOLOL 0.5% OPHTHALMIC SOL 5 ML BOTTLE OD SCH (09:04)
[2020-02-17] MEDS: GABAPENTIN 300 MG CAPSULE PO SCH (09:04)
[2020-02-17] MEDS: POLYETHYLENE GLYCOL 3350 119 GM BTL PO SCH (09:04)
[2020-02-17 15:20] VITALS: BP 115/49; PULSE 70; TEMP 98
== END 2020-02-17 17:30 | DRG 629 ==
LOC: JER 11:24 → JERBED 13:45 → J5S 18:59
PROVIDERS: ADMIT Internal Medicine; ATTEND Internal Medicine
PROC: 0SPGX4Z Removal of Internal Fixation Device from Left Ankle Joint, External Approach (ICD-10-PCS; 2020-02-09)
PROC: 0QBN0ZZ Excision of Right Metatarsal, Open Approach (ICD-10-PCS; 2020-02-10)
PROC: 0QBP0ZZ Excision of Left Metatarsal, Open Approach (ICD-10-PCS; principal; 2020-02-10 11:00)
PROC: 02HV33Z Insertion of Infusion Device into Superior Vena Cava, Percutaneous Approach (ICD-10-PCS; 2020-02-17)
PROC: B518ZZA Fluoroscopy of Superior Vena Cava, Guidance (ICD-10-PCS; 2020-02-17)
DX: E11.69 Type 2 diabetes mellitus with other specified complication (principal); L97.528 Non-pressure chronic ulcer of other part of left foot with other specified severity; L97.518 Non-pressure chronic ulcer of other part of right foot with other specified severity; M86.671 Other chronic osteomyelitis, right ankle and foot; E11.621 Type 2 diabetes mellitus with foot ulcer; M06.80 Other specified rheumatoid arthritis, unspecified site; R53.2 Functional quadriplegia; G30.9 Alzheimer's disease, unspecified; F02.80 Dementia in other diseases classified elsewhere, unspecified severity, without behavioral disturbance, psychotic disturbance, mood disturbance, and anxiety; K56.41 Fecal impaction; Z86.73 Personal history of transient ischemic attack (TIA), and cerebral infarction without residual deficits; B95.62 Methicillin resistant Staphylococcus aureus infection as the cause of diseases classified elsewhere
CPT/HCPCS: 36415; 36569; 71045-TC-FY; 71260-TC; 73610-TC-LT-FY; 73610-TC-RT-FY; 73630-TC-LT; 73630-TC-RT-FY; 74019-TC-FY; 74177-TC; 77001-TC-FY; 80053; 82962; 85025; 85610; 85730; 86140; 86850; 86900; 86901; 87040; 87070; 87075; 87186; 87205; 88305-TC; 88311-TC; 93005; 93010; 94760; 99285-25; C1751; G0463-25; G0480; Q9967; U0003